=== PATIENT | female | born 1965 | race Caucasian/White ===

== ENCOUNTER 2018-02-23 05:09 | Emergency (ER) | payer OTHER ==
[2018-02-23 06:53] LABS: BASO # 0.1 K/uL (0.0-0.2); BASO % 0.9 % (0.0-2.0); EOS # 0.2 K/uL (0.0-0.7); EOS % 2.4 % (0.0-4.0); HEMOGLOBIN 13.7 g/dL (12.0-16.0); LYMPH % 37.7 % (20.0-40.0); MEAN CELL VOLUME 86.1 fl (81.0-99.0); MEAN CORPUSCULAR HEMOGLOBIN 28.8 pg (27.0-31.0); MEAN CORPUSCULAR HGB CONC 33.5 g/dL (33.0-37.0); MEAN PLATELET VOLUME 8.4 fl (7.2-11.7); MONO # 0.7 K/uL (0.0-0.8); MONO % 8.4 % (0.0-10.0); NEUT % 50.6 % (50.0-75.0); NRBC % 0.1 % (0.0-0.0); RBC 4.77 Mil/uL (3.80-5.20); RED CELL DISTRIBUTION WIDTH 14.1 % (11.5-14.5); WHITE BLOOD COUNT 7.9 K/uL (4.8-10.8)
--- NOTE | 2018-02-23 06:58 | ED PDOC ---
HPI: Psych/Substance Abuse Time Seen by Provider: 02/23/18 05:35 Chief Complaint (Nursing): Psychiatric Evaluation Chief Complaint (Provider): Psychiatric Evaluation History Per: Patient, EMS, Family Onset/Duration Of Symptoms: Days (x3) Current Symptoms Are (Timing): Still Present Additional Complaint(s): Robyn Tinsley is a 53 year old female with a past medical history of schizophrenia who is presenting to the ED for a psychiatric evaluation. Patient presents with latter day preoccupation and was [place] [facility] [place]. Daughter states that she was discharges as she was deemed to be safe and not a danger to herself or others. Patient perseverating over the devil. Daughter also reports that patient has not slept in 3 days. Patient offers no other medical complaints at this time. Past Medical History Reviewed: Historical Data, Nursing Documentation, Vital Signs Vital Signs: Last Vital Signs Temp 97.9 F 02/23/18 05:41 Pulse 142 H 02/23/18 05:41 Resp 16 02/23/18 05:41 BP 155/107 H 02/23/18 05:41 Pulse Ox 98 02/23/18 05:41 - Medical History PMH: Back Problems, Schizophrenia Denies: Diabetes, Hepatitis, HIV, HTN, Chronic Kidney Disease, Seizures, Sexually Transmitted Disease - Surgical History Surgical History: Back Surgery - Family History Family History: States: Unknown Family Hx - Social History Current smoker - smoking cessation education provided: No Alcohol: None Drugs: Denies - Home Medications Home Medications: Ambulatory Orders Medication Instructions Recorded Unobtainable 02/23/18 - Allergies Allergies/Adverse Reactions: Allergies Allergy/AdvReac Type Severity Reaction Status Date / Time No Known Allergies Allergy Verified 05/17/15 09:42 Review of Systems ROS Statement: Except As Marked, All Systems Reviewed And Found Negative Neurological: Positive for: Other (altered behavior secondary to history of schizophrenia) Physical Exam - Reviewed Nursing Documentation Reviewed: Yes Vital Signs Reviewed: Yes - Physical Exam Appears: Positive for: Non-toxic, No Acute Distress (uncooperatve with staff, attempted to strike workers) Head Exam: Positive for: ATRAUMATIC, NORMAL INSPECTION, NORMOCEPHALIC Skin: Positive for: Normal Color, Warm, DRY Eye Exam: Positive for: EOMI, Normal appearance, PERRL ENT: Positive for: Normal ENT Inspection Neck: Positive for: Normal Cardiovascular/Chest: Positive for: Tachycardia Respiratory: Positive for: Normal Breath Sounds. Negative for: Respiratory Distress Gastrointestinal/Abdominal: Positive for: Normal Exam, Soft. Negative for: Tenderness Back: Positive for: Normal Inspection Extremity: Positive for: Normal ROM. Negative for: Deformity, Swelling Neurologic/Psych: Positive for: Alert, Oriented. Negative for: Motor/Sensory Deficits - Laboratory Results Result Diagrams: 02/23/18 06:45 02/23/18 06:45 - ECG O2 Sat by Pulse Oximetry: 98 (RA) Pulse Ox Interpretation: Normal Medical Decision Making Medical Decision Making: Time: 6:45 -53 year old woman with decompensated schizophrenia. Patient deemed to be a danger to herself and others. -She requires chemical sedation; will get blood work and urine studies. -will follow with crisis evaluation. 7:00 Patient will be signed out to Dr. Wadsworth pending crisis evaluation and ED workup. Scribe Attestation: Documented byArmida acting as a scribe for Jae Glaser MD. Provider Scribe Attestation: All medical record entries made by the Scribe were at my direction and personally dictated by me. I have reviewed the chart and agree that the record accurately reflects my personal performance of the history, physical exam, medical decision making, and the department course for this patient. I have also personally directed, reviewed, and agree with the discharge instructions and disposition. Disposition - Clinical Impression Clinical Impression: Schizophrenia - Disposition Disposition Time: 07:00 Condition: STABLE Forms: [employer] (Turkmen) Patient Signed Over To: Rimma Wadsworth Handoff Comments: pending crisis eval
[2018-02-23 07:02] LABS: ACETAMINOPHEN < 10.0 ug/ml (10.0-30.0); BLOOD UREA NITROGEN 11 mg/dl (7-17); CALCIUM 9.8 mg/dL (8.4-10.2); GFR AFRICAN-AMERICAN > 60; GFR NON-AFRICAN AMERICAN > 60; SALICYLATE < 1.0 mg/dl
[2018-02-23 07:07] LABS: URINE BILIRUBIN NEGATIVE (NEGATIVE); URINE BLOOD SMALL (NEGATIVE); URINE CLARITY CLEAR (Clear); URINE COLOR STRAW (YELLOW); URINE GLUCOSE (UA) NEG (Normal); URINE LEUKOCYTE ESTERASE NEG Leu/uL (Negative); URINE PROTEIN NEGATIVE (NEGATIVE); URINE UROBILINOGEN 0.2-1.0 mg/dL (0.2-1.0)
[2018-02-23 07:09] LABS: BARBITURATES, UR NEGATIVE (NEGATIVE); BENZODIAZEPINES, UR NEGATIVE (NEGATIVE); OPIATES, UR NEGATIVE (NEGATIVE); PHENCYCLIDINE, UR NEGATIVE (NEGATIVE)
--- NOTE | 2018-02-23 07:21 | ED PDOC ---
- Laboratory Results Result Diagrams: 02/23/18 06:45 02/23/18 06:45 - ECG O2 Sat by Pulse Oximetry: 98 (RA) Pulse Ox Interpretation: Normal Medical Decision Making Medical Decision Making: Patient endorsed to me by Dr. Glaser @ 0700, pending crisis evaluation and ED workup. -- Patient endorsed to Dr. Adrian @1500, pending [facility] [place] evaluation screen for involuntary psych. Scribe Attestation: Documented by Anthony Malloy, acting as a scribe for Dr. Rimma Wadsworth MD. Provider Scribe Attestation: All medical record entries made by the Scribe were at my direction and personally dictated by me. I have reviewed the chart and agree that the record accurately reflects my personal performance of the history, physical exam, medical decision making, and the department course for this patient. I have also personally directed, reviewed, and agree with the discharge instructions and disposition. Disposition - Disposition Forms: [employer] (Irish)
--- NOTE | 2018-02-23 15:07 | ED PDOC ---
- Laboratory Results Result Diagrams: 02/23/18 06:45 02/23/18 06:45 - ECG ECG: Positive for: Interpreted By Me ECG Rhythm: Positive for: Normal QRS, Normal ST Segment, Sinus Tachycardia O2 Sat by Pulse Oximetry: 98 (RA) Pulse Ox Interpretation: Normal - Radiology X-Ray: Interpreted by Me X-Ray Interpretation: No Acute Disease - Progress ED Course And Treament: 3p Rec'd endorsement from Dr Wadsworth. Pt pending [facility] [place] screen for involuntary psych. 8p Patient has been accepted to [facility] and is medically cleared. However pending bed availability. Pt began to get agitated in ER. Ativan ordered. 12am Endorsed to Dr Glaser. Pending bed availability in [facility]. Disposition - Clinical Impression Clinical Impression: Schizophrenia - POA Present On Arrival: None - Disposition Disposition: Transfer of Care Disposition Time: 00:00 Condition: STABLE Forms: [facility] (Maori) Patient Signed Over To: Jea Glaser Handoff Comments: pending bed [facility]
--- NOTE | 2018-02-23 15:41 | CP.PCM.CON ---
History of Present Illness - History of Present Illness History of Present Illness: This is a 53 yr old female with h/o schizoaffective disorder recently [place] [facility] [place] brought by family as pt is very delusional,obsessed with devil and not sleeping and presenting with disorganized thinking.pt has refused inpt admission voluntarily and referred for screening [place] [facility] Past Patient History - Past Social History Smoking Status: Never Smoked - CARDIAC Hx Hypertension: No - PULMONARY Hx Tuberculosis: No - NEUROLOGICAL Hx Seizures: No - HEENT Hx HEENT Problems: No - RENAL Hx Chronic Kidney Disease: No - ENDOCRINE/METABOLIC Hx Endocrine Disorders: No - HEMATOLOGICAL/ONCOLOGICAL Hx Human Immunodeficiency Virus (HIV): No - INTEGUMENTARY Hx Dermatological Problems: No - MUSCULOSKELETAL/RHEUMATOLOGICAL Hx Herniated Disk: Yes - GASTROINTESTINAL Hx Gastrointestinal Disorders: No - GENITOURINARY/GYNECOLOGICAL Hx Sexually Transmitted Disorders: No - PSYCHIATRIC Hx Schizophrenia: Yes Hx Substance Use: No - SURGICAL HISTORY Hx Surgeries: No Meds Allergies/Adverse Reactions: Allergies Allergy/AdvReac Type Severity Reaction Status Date / Time No Known Allergies Allergy Verified 05/17/15 09:42 Results - Vital Signs Recent Vital Signs: Last Vital Signs Temp 97.9 F 02/23/18 05:41 Pulse 142 H 02/23/18 05:41 Resp 16 02/23/18 05:41 BP 155/107 H 02/23/18 05:41 Pulse Ox 98 02/23/18 15:14 - Labs Result Diagrams: 02/23/18 06:45 02/23/18 06:45 Labs: Laboratory Results - last 24 hr 02/23/18 02/23/18 02/23/18 06:45 06:45 06:45 WBC 7.9 RBC 4.77 Hgb 13.7 Hct 41.0 MCV 86.1 D MCH 28.8 MCHC 33.5 RDW 14.1 Plt Count 312 MPV 8.4 Neut % (Auto) 50.6 Lymph % (Auto) 37.7 [place] % (Auto) 8.4 Eos % (Auto) 2.4 Baso % (Auto) 0.9 Neut # (Auto) 4.0 Lymph # (Auto) 3.0 [place] # (Auto) 0.7 Eos # (Auto) 0.2 Baso # (Auto) 0.1 Sodium 139 Potassium 3.5 L Chloride 99 Carbon Dioxide 24 Anion Gap 20 BUN 11 Creatinine 0.6 L Est GFR ( Amer) > 60 Est GFR (Non-Af Amer) > 60 Random Glucose 165 H Calcium 9.8 Urine Color Urine Clarity Urine pH Ur Specific [place] Urine Protein Urine Glucose (UA) Urine Ketones Urine Blood Urine Nitrate Urine Bilirubin Urine Urobilinogen Ur Leukocyte Esterase Urine RBC (Auto) Urine Microscopic WBC Salicylates < 1.0 Urine Opiates Screen Urine Methadone Screen Acetaminophen < 10.0 L Ur Barbiturates Screen Ur Phencyclidine Scrn Ur Amphetamines Screen U Benzodiazepines Scrn U Oth Cocaine Metabols U Cannabinoids Screen Alcohol, Quantitative < 10 02/23/18 02/23/18 06:45 06:45 WBC RBC Hgb Hct MCV MCH MCHC RDW Plt Count MPV Neut % (Auto) Lymph % (Auto) [place] % (Auto) Eos % (Auto) Baso % (Auto) Neut # (Auto) Lymph # (Auto) [place] # (Auto) Eos # (Auto) Baso # (Auto) Sodium Potassium Chloride Carbon Dioxide Anion Gap BUN Creatinine Est GFR ( Amer) Est GFR (Non-Af Amer) Random Glucose Calcium Urine Color Straw Urine Clarity Clear Urine pH 7.0 Ur Specific [place] 1.005 Urine Protein Negative Urine Glucose (UA) Neg Urine Ketones Negative Urine Blood Small Urine Nitrate Negative Urine Bilirubin Negative Urine Urobilinogen 0.2-1.0 Ur Leukocyte Esterase Neg Urine RBC (Auto) < 1 Urine Microscopic WBC < 1 Salicylates Urine Opiates Screen Negative Urine Methadone Screen Negative Acetaminophen Ur Barbiturates Screen Negative Ur Phencyclidine Scrn Negative Ur Amphetamines Screen Negative U Benzodiazepines Scrn Negative U Oth Cocaine Metabols Negative U Cannabinoids Screen Negative Alcohol, Quantitative
--- NOTE | 2018-02-24 00:07 | ED PDOC ---
- Laboratory Results Result Diagrams: 02/23/18 06:45 02/23/18 06:45 - ECG O2 Sat by Pulse Oximetry: 98 (RA) Medical Decision Making Medical Decision Makin Patient signed out to this provider from Dr. Adrian pending [facility] [place] [place] bed availability. Patient has been accepted to [facility] [place] [place] and is medically cleared. CXR reviewed by me, negative for acute pathology. 0700 Patient will be signed out to Dr. Turner pending [facility] [place] [place] bed availability. Scribe Attestation: Documented by Christine Lozada acting as a scribe for Jae Glaser MD. Scribe Attestation: All medical record entries made by the Scribe were at my direction and personally dictated by me. I have reviewed the chart and agree that the record accurately reflects my personal performance of the history, physical exam, medical decision making, and the department course for this patient. I have also personally directed, reviewed, and agree with the discharge instructions and disposition. Disposition - Clinical Impression Clinical Impression: Schizophrenia - POA Present On Arrival: None - Disposition Disposition: Transfer of Care Disposition Time: 07:00 Condition: STABLE Forms: [employer] (Jordanian) Patient Signed Over To: Lissett Turner Handoff Comments: Patient will be signed out to Dr. Turner pending [facility] [place] [place] bed availability.
--- NOTE | 2018-02-24 07:34 | ED PDOC ---
- Laboratory Results Result Diagrams: 02/23/18 06:45 02/23/18 06:45 - ECG O2 Sat by Pulse Oximetry: 98 (RA) Medical Decision Making Medical Decision Makin:00 Patient care endorsed from Dr. Jae Glaser to Dr. Lissett Turner pending bed availability at [facility]. 12:00 Patient resting in room comfortably 17:00 Patient signed out to Dr. Adrian pending [facility] transfer. Scribe Attestation: Documented by Katerine Wolf, acting as a scribe for Lissett Turner MD Provider Scribe Attestation: All medical entries made by the Scribe were at my direction and personally dictated by me. I have reviewed the chart and agree that the record accurately reflects my personal performance of the history, physical exam, medical decision making, and the department course for this patient. I have also personally directed, reviewed, and agree with the discharge instructions and disposition. Disposition - Clinical Impression Clinical Impression: Schizophrenia - POA Present On Arrival: None - Disposition Disposition: Transfer of Care Disposition Time: 16:56 Condition: STABLE Forms: [employer] (Urdu) Patient Signed Over To: Ebonie Adrian
--- NOTE | 2018-02-24 09:07 | RAD ---
HISTORY: psychosis COMPARISON: No prior. FINDINGS: LUNGS: No active pulmonary disease. Improved inspiratory volume appreciated. PLEURA: No significant pleural effusion identified, no pneumothorax apparent. CARDIOVASCULAR: Normal. OSSEOUS STRUCTURES: No significant abnormalities. VISUALIZED UPPER ABDOMEN: Normal. OTHER FINDINGS: None. IMPRESSION: No interval acute cardiopulmonary disease appreciated.
--- NOTE | 2018-02-24 11:37 | CP.PCM.CON ---
History of Present Illness - History of Present Illness History of Present Illness: Psychiatry consult follow-up note CC: "I'm here because my daughter brought me here." HPI: 53 yo female w/ h/o schizoaffective disorder, continues to be delusional, religiously preoccupied and w/ disorganized speech/thoughts. She has poor insight into why she is in the hospital and was only oriented x self and 2018. Patient was informed that she was accepted for involuntary psychiatric admission at [facility] and is waiting for a bed. She denies acute AH/VH/SI/HI. MSE: A + O x self, 2018, poor eye contact, calm, cooperative, mood "okay", affect- constricted, thought process- non linear, thought content- +delusions, denies AH/VH/SI/HI, poor insight/judgment Impression: 53 yo female w/ schizoaffective disorder, presented acutely decompensated; accepted for involuntary psychiatric admission at [facility], pending bed and transfer. -Transfer to [facility] when bed is available -Zyprexa stat Past Patient History - Past Social History Alcohol: None Drugs: Denies - CARDIAC Hx Hypertension: No - PULMONARY Hx Tuberculosis: No - NEUROLOGICAL Hx Seizures: No - HEENT Hx HEENT Problems: No - RENAL Hx Chronic Kidney Disease: No - ENDOCRINE/METABOLIC Hx Endocrine Disorders: No - HEMATOLOGICAL/ONCOLOGICAL Hx Human Immunodeficiency Virus (HIV): No - INTEGUMENTARY Hx Dermatological Problems: No - MUSCULOSKELETAL/RHEUMATOLOGICAL Hx Herniated Disk: Yes - GASTROINTESTINAL Hx Gastrointestinal Disorders: No - GENITOURINARY/GYNECOLOGICAL Hx Sexually Transmitted Disorders: No - PSYCHIATRIC Hx Schizophrenia: Yes - SURGICAL HISTORY Hx Surgeries: No Meds Allergies/Adverse Reactions: Allergies Allergy/AdvReac Type Severity Reaction Status Date / Time No Known Allergies Allergy Verified 05/17/15 09:42 - Medications Medications: Current Medications Olanzapine (Zyprexa) 10 mg PO STAT STA Stop: 02/24/18 11:32 Results - Vital Signs Recent Vital Signs: Last Vital Signs Temp 98.0 F 02/24/18 06:25 Pulse 95 H 02/24/18 08:00 Resp 18 02/24/18 08:00 BP 110/74 02/24/18 08:00 Pulse Ox 95 02/24/18 08:00 - Labs Result Diagrams: 02/23/18 06:45 02/23/18 06:45
--- NOTE | 2018-02-24 17:12 | ED PDOC ---
- Laboratory Results Result Diagrams: 02/23/18 06:45 02/23/18 06:45 - ECG O2 Sat by Pulse Oximetry: 98 (RA) Pulse Ox Interpretation: Normal Medical Decision Making Medical Decision Making: Time: 1699 Patient signed out to me by Dr. Turner pending [facility] transfer. Time: 1818 Patient noted to be agitated and complaining of back pain. Motrin 600mg PO and Valium 5mg PO ordered. Time: 1835 Patient continuously agitated, Haldol 5mg IM and Ativan 2mg IM ordered. Scribe Attestation: Documented by Kate Ingram, acting as a scribe for Ebonie Adrian MD. Provider Attestation: All medical record entries made by the Scribe were at my direction and personally dictated by me. I have reviewed the chart and agree that the record accurately reflects my personal performance of the history, physical exam, medical decision making, and the department course for this patient. I have also personally directed, reviewed, and agree with the discharge instructions and disposition. Disposition - Clinical Impression Clinical Impression: Schizophrenia - Disposition Condition: STABLE Forms: [employer] (Bangladeshi)
[2018-02-24 23:08] VITALS: BP 105/67; PULSE 82; RESP 16; TEMP 97.9
[2018-02-25 00:14] VITALS: O2SAT 98
== END 2018-02-24 23:40 | disposition short-term general hospital (02) ==
LOC: H.ER 05:09
DX: F25.9 Schizoaffective disorder, unspecified (principal)
CPT/HCPCS: 71045; 80048; 80320; 80324; 80329; 80345; 80346; 80349; 80353; 80358; 80361; 81003; 81025; 83992; 85025; 96372; 99285; J1630; J2060